=== PATIENT | male | born 1945 | race Two or more races ===

== ENCOUNTER → 2020-05-09 14:13 | Outpatient (BNVA) | payer MEDICARE, MEDICAID, SELFPAY | PROVIDERS: PCP Family Medicine; Visit Provider Surgery | DX: Z86.010 Personal history of colon polyps (principal) | CPT/HCPCS: 99202 ==

== ENCOUNTER 2020-05-24 06:45 | Day surgery (SDC) | payer MEDICARE, MEDICAID, SELFPAY ==
[2020-05-17 13:41] VITALS: BMI 31.9
[2020-05-24 06:54] VITALS: BMI 30.9
[2020-05-24 07:13] VITALS: BP 163/95; PULSE 79; RESP 16; TEMP 36.7; O2SAT 99
[2020-05-24 07:13] LABS: Glucose, Whole Blood 174 mg/dL (60-115)
--- NOTE | 2020-05-24 07:30 | HO.ANESPROP2 ---
[facility] Past Medical History Medical History Anemia BPH (benign prostatic hyperplasia) Diabetes mellitus GERD (gastroesophageal reflux disease) History of adenomatous polyp of colon Hyperlipidemia Hypertension Neuropathy [place] speaking patient Surgical History Surgical History History of circumcision (10/02/16) History of colonoscopy with polypectomy (03/19/14) History of local excision of skin lesion (02/29/16) Hx of transurethral resection of prostate Social History Social History Are you a primary healthcare administration internship to a significant other at home: No Do you presently have visiting nurse or other home services: No Smoking Status: Former smoker Smoking Quit Date: 1979 Use of substances other than those prescribed or required for medical reasons: No Advance Directives: No Advance Directives Information Provided: Yes Recently lost weight without trying: No Meds Allergies Allergy/AdvReac Type Severity Reaction Status Date / Time No Known Allergies Allergy Verified 05/24/20 06:53 Home Medications Medication Instructions Recorded Confirmed Type alcohol swabs pad TOPICAL BID 05/09/20 History aspirin 81 mg tablet,delayed 81 mg PO BEDTIME 05/09/20 05/17/20 History release atorvastatin 10 mg tablet 10 mg PO BEDTIME 05/09/20 05/17/20 History blood sugar diagnostic #10 ea 05/09/20 History cholecalciferol (vitamin D3) 50 50 mcg PO QAM 05/09/20 05/17/20 History mcg (2,000 unit) tablet lisinopril 40 mg tablet 40 mg PO QAM 05/09/20 05/17/20 History metformin 500 mg tablet 1,000 mg PO BID 05/09/20 05/17/20 History omeprazole 20 mg capsule,delayed 20 mg PO QAM 05/09/20 05/17/20 History release pregabalin 50 mg capsule 50 mg PO TID 05/09/20 05/17/20 History Exam Exam Date and Time: May 24, 2020729 Height,Weight and Vital Signs: Height 5 ft 6 in Weight 87.09 kg Last Vital Signs Temp 98.1 F 05/24/20 07:13 Pulse 79 05/24/20 07:13 Resp 16 05/24/20 07:13 BP 163/95 H 05/24/20 07:13 Pulse Ox 99 05/24/20 07:13 Pertinent Lab Results Pertinent Lab Results: Laboratory Tests 05/24/20 07:09 POC Glucose 174 H Airway Mallampati Class: III TM Dist: >3cm Neck ROM: Full Denture: Upper and Lower Heart: rrr Lungs: nl Other: ao Assessment and Plan Assessment Anesthesia Assessment: Anesthesia Plan Discussed and Chart Reviewed Final Anesthetic Review NPO: Yes ASA Class: III Final Preanesthetic Review: No Changes in Pt Med Stat, Meds/Allgs Chart Reviewed, Consent Obtained/Reviewed and Anes Risks/Benef Reviewed Patient Risk: Intermediate Procedure Risk: Low Anesthetic Plan Anesthetic Plan: MAC: Disposition: Standard PACU
[2020-05-24 08:15] VITALS: BP 120/66; PULSE 81; RESP 16; TEMP 37.1; O2SAT 98
--- NOTE | 2020-05-24 08:21 | MHC.SHP ---
Pre-Procedural Eval Section B Chief Complaint: History of Adenomatous Polyp of Colon Allergies: Allergies Allergy/AdvReac Type Severity Reaction Status Date / Time No Known Allergies Allergy Verified 05/24/20 06:53 Plan I have reviewed the history and physical and performed a pertinent physical examination on my patient. No changes have occurred unless specified.
--- NOTE | 2020-05-24 08:21 | PM.OP ---
Brief Operative Note Date of Service: 05/24/20 Pre-op diagnosis: hx of adenoma Post-op diagnosis: other (multiple small polyps - cecum, right colon, hepatic flexure, level 40) Procedure: colonoscopy, polypectomy with forceps x 4 Surgeon: Shailesh Buck MD Anesthesia: MAC Estimated blood loss (mL): 3 Pathology: other (multiple polyps) Condition: stable Disposition: PACU
[2020-05-24 08:30] VITALS: BP 150/90; PULSE 77; RESP 16; TEMP 37.1; O2SAT 98
--- NOTE | 2020-05-24 08:57 | OP_ITS ---
SURGEON: Shailesh Buck MD INDICATIONS: The patient is a 74-year-old male, who had a history of an adenoma seen on a previous colonoscopy in 2014, referred to me for a followup colonoscopy. He understood the technique of procedure. He was aware of the risks, benefits, and alternatives. PREOPERATIVE DIAGNOSIS: History of tubular adenomas. POSTOPERATIVE DIAGNOSIS: PROCEDURE PERFORMED: Colonoscopy, polypectomy using cold forceps x4 for polyps. ESTIMATED BLOOD LOSS: COMPLICATIONS: ANESTHESIA: ASSISTANTS: SPECIMENS: POSTOPERATIVE DIAGNOSES: 1. Small polyp about 2-3 mm in the cecum, removed with multiple bites of the cold forceps. 2. Small polyp in the mid right colon about 2 to 3 mm also removed using multiple bites of cold forceps. 3. Flat polyp about 7 mm near the area of the hepatic flexure, removed using multiple bites of cold forceps. 4. Small polyp about 2 mm at level of 40 cm removed using cold forceps. 5. Occasional diverticula. DESCRIPTION OF PROCEDURE: He was brought to the operating room, placed in left lateral decubitus position under monitored anesthesia care. A full digital rectal was done. There was no palpable mass or induration. The tip of the Olympus colonoscope was gently introduced through the anal orifice, advanced with insufflation all the way to the cecum. The cecum was intubated. The cecum was identified by visualization of the ileocecal valve, as well as the appendiceal orifice. There was note of a small polyp in the cecum, about 2-3 mm in size, removed using multiple bites of cold forceps. I proceeded to continue withdrawing the scope with careful examination of the entire colonic mucosa being done with scope withdrawal. The patient had good bowel prep, so it was unlikely that any lesion may have been missed. There was note of a small polyp about 2-3 mm in the mid right colon removed with multiple bites of cold forceps. At the area of the hepatic flexure was note of a flat polyp about 7 mm in size removed using multiple bites of cold forceps. At level of 40 cm was note of a small polyp about 2 mm in size, removed using multiple bites of cold forceps. There was also note of occasional diverticula in the entire colon. The rectum was reached and there were no lesions seen. The scope was then withdrawn completely. The patient tolerated the procedure well. There were no complications noted. Depending on the path report, I would recommend a followup colonoscopy within 1-2 years in view of the flat polyp seen. MD DIANNA Castañeda/MARCIO / [id number] MTDD
--- NOTE | 2020-05-24 08:58 | HO.POSTANES ---
Post Anesthesia Evaluation Post Anesthesia Evaluation Vital Signs: Vital Signs Temp Pulse Resp BP Pulse Ox 05/24/20 08:30 98.8 F 77 16 150/90 H 98 05/24/20 08:15 98.8 F 81 16 120/66 98 05/24/20 07:13 98.1 F 79 16 163/95 H 99 Anesthesia: General (tiva) Mental Status: Awake Pain Control: Satisfactory Nausea/Vomiting: None Hydration: Adequate Anesthesia-Related Issues: No Anes. Related Issues
--- NOTE | 2020-05-24 12:19 | PC.NURSE ---
[id number] ENCEPHALOGRAPHER USED FOR INSTRUCTIONS
== END 2020-05-24 09:12 | disposition home or self-care (01) ==
PROVIDERS: PCP Family Medicine; Visit Provider Surgery
PROC: 0DJD8ZZ Inspection of Lower Intestinal Tract, Via Natural or Artificial Opening Endoscopic (ICD-10-PCS; CPT 45378; principal; 2020-05-24 07:30)
DX: Z12.11 Encounter for screening for malignant neoplasm of colon (principal); Z86.010 Personal history of colon polyps; D12.0 Benign neoplasm of cecum; D12.2 Benign neoplasm of ascending colon; D12.3 Benign neoplasm of transverse colon; D12.5 Benign neoplasm of sigmoid colon; K57.30 Diverticulosis of large intestine without perforation or abscess without bleeding; I10 Essential (primary) hypertension; E11.9 Type 2 diabetes mellitus without complications; G62.9 Polyneuropathy, unspecified; D64.9 Anemia, unspecified; Z79.84 Long term (current) use of oral hypoglycemic drugs; Z79.899 Other long term (current) drug therapy; Z79.82 Long term (current) use of aspirin
CPT/HCPCS: 45380; 82947; 88305

== ENCOUNTER → 2020-05-30 15:03 | Outpatient (BNVA) | payer MEDICARE, MEDICAID, SELFPAY | PROVIDERS: PCP Family Medicine; Visit Provider Urology | DX: N39.41 Urge incontinence (principal) | CPT/HCPCS: 51798; 81002; 99212 ==

== ENCOUNTER 2021-03-09 08:39 | Outpatient (REF) | payer MEDICARE, MEDICAID, SELFPAY | END 2021-03-09 08:40 | disposition home or self-care (01) | LOC: HO.HOSX 08:39 | PROVIDERS: Visit Provider Orthopaedic Surgery | DX: Z13.89 Encounter for screening for other disorder (principal) ==

== ENCOUNTER 2021-03-10 11:08 | Emergency (ER) | payer MEDICARE, MEDICAID, SELFPAY ==
[2021-03-10 11:20] VITALS: BP 182/97; BP 183/79; PULSE 77; RESP 19; TEMP 36.5; O2SAT 95; BMI 25.1
[2021-03-10 11:21] LABS: Glucose, Whole Blood 404 mg/dL (60-115)
--- NOTE | 2021-03-10 11:30 | ED_ITS ---
HPI - General Adult General Chief complaint: General Medical Stated complaint: hyperglycemia Time Seen by Provider: 03/10/21 11:30 History of Present Illness HPI narrative: Patient from intermediate has a history of diabetes, hypertension. Presented today with having episode of dizziness. Was noted to have a sugar of over 500. Patient is sent in for further evaluation. No fever no chills no cough no congestion no chest pain or shortness of breath. No change in stool. No abdominal pain. Patient from home. There has been no changes in medication is no change in diet. No nausea no vomiting. Related Data Home Medications Medication Instructions Recorded Confirmed alcohol swabs pad TOPICAL BID 05/09/20 05/30/20 aspirin 81 mg tablet,delayed 81 mg PO BEDTIME 05/09/20 05/30/20 release atorvastatin 10 mg tablet 10 mg PO BEDTIME 05/09/20 05/30/20 blood sugar diagnostic #10 ea 05/09/20 05/30/20 cholecalciferol (vitamin D3) 50 50 mcg PO QAM 05/09/20 05/30/20 mcg (2,000 unit) tablet lisinopril 40 mg tablet 40 mg PO QAM 05/09/20 05/30/20 metformin 500 mg tablet 1,000 mg PO BID 05/09/20 05/30/20 omeprazole 20 mg capsule,delayed 20 mg PO QAM 05/09/20 05/30/20 release pregabalin 50 mg capsule 50 mg PO TID 05/09/20 05/30/20 duloxetine 60 mg capsule,delayed 60 mg PO DAILY 05/30/20 05/30/20 release Previous Rx's Medication Instructions Recorded sodium,potassium,mag sulfates 17.5 See Rx Instructions PO .COMPLEX 05/23/20 gram-3.13 gram-1.6 gram oral soln #354 ml (Suprep Bowel Prep Kit) Allergies Allergy/AdvReac Type Severity Reaction Status Date / Time No Known Allergies Allergy Verified 05/30/20 15:23 Review of Systems Review of Systems: No cough no congestion or upper respiratory symptoms No diaphoresis All systems reviewed otherwise negative PMFSH Past Medical History Attestation statement: The following information was validated with the patient. Medical History Anemia BPH (benign prostatic hyperplasia) Diabetes mellitus GERD (gastroesophageal reflux disease) History of adenomatous polyp of colon Hyperlipidemia Hypertension Neuropathy [place] speaking patient Urge incontinence Urgency of micturition Surgical History History of circumcision (10/02/16) History of colonoscopy with polypectomy (03/19/14) History of local excision of skin lesion (02/29/16) Hx of transurethral resection of prostate Family History Family History Other Lung disease Social History Social History Are you a primary after school caregiver to a significant other at home: No Do you presently have visiting nurse or other home services: No Alcohol intake: never Patient Tobacco Use Status: Never used Tobacco Use of substances other than those prescribed or required for medical reasons: No Advance Directives: No Advance Directives Information Provided: Yes Physical Exam Vital Signs: Vital Signs: Last Vital Signs Temp 97.7 F 03/10/21 11:20 Pulse 76 03/10/21 11:42 Resp 19 03/10/21 11:20 BP 162/80 H 03/10/21 11:42 Pulse Ox 95 03/10/21 11:20 Body Mass Index 25.1 Appearance: Alert. Oriented X3. No acute distress. Eyes: Pupils equal, round and reactive to light. ENT: Pharynx normal. Neck: Normal inspection. Neck supple. No lymph nodes noted. No crepitus CVS: Normal heart rate and rhythm. Pulses normal. Normal S1 and S2 Respiratory: No respiratory distress. Breath sounds normal. No Wheezing. No rales Abdomen: Soft and nontender. No rigidity. No distention. good BS x4 Skin: Skin warm and dry. Normal skin color. Normal skin turgor. Extremities: No lower extremity edema. Neurovascular intact to all extremities. No Lacerations. No Rash Neuro: Oriented X 3. No motor deficit. No sensory deficit. Moving all extermities. No slurred speech Medical Decision Making MDM Narrative Medical decision making narrative: Patient given IV fluid monitor emergency department. The initial glucose was elevated. After IV fluids is down to 250. Will discharge patient home. Hemoglobin is 11.6. Patient's EKG showed sinus pattern heart rate is 70 VA QRS QT within normal limits this slight flattening in the T-waves in the lateral leads. Flattening of the T-waves over the inferior leads. Patient's troponin was negative. LFTs are normal. Currently asymptomatic. Will discharge patient home. In stable condition. Will ask patient to follow a strict diabetic diet. Continue taking his medication. Lab Data Result diagrams: 03/10/21 12:11 03/10/21 12:11 Labs: Lab Results 03/10/21 03/10/21 03/10/21 Range/Units 11:17 12:11 12:11 WBC 5.3 (4.8-10.8) X10*3/uL RBC 3.90 L (4.60-5.80) X10*6/uL Hgb 11.6 L (14.0-18.0) g/dl Hct 34.1 L (42-52) % MCV 87.4 (80-98) fL MCH 29.7 (27.0-33.0) pg MCHC 34.0 (31.0-36.0) g/dl RDW 12.8 (11.0-16.0) % Plt Count 171 (160-400) X10*3/uL MPV 10.9 (9.4-12.4) fL Immature Gran % (Auto) 0.4 (0.0-0.4) % Neut % (Auto) 67.1 (45-73) % Lymph % (Auto) 23.8 (20-40) % [place] % (Auto) 6.8 (2-11) % Eos % (Auto) 1.3 (0-4) % Baso % (Auto) 0.6 (0-2) % Lymph # (Auto) 1.3 (1.2-4.9) X10*3/uL [place] # (Auto) 0.4 (0.1-1.2) X10*3/uL Eos # (Auto) 0.1 (0.0-0.4) X10*3/uL Baso # (Auto) 0.0 (0.0-0.2) X10*3/uL Abs Immat Gran (auto) 0.02 (0.00-0.03) X10*3/uL Absolute Neuts (auto) 3.6 (2.0-8.3) X10*3/uL Absolute Nucleated RBC 0.000 (0.0-0.012) X10*3/uL Nucleated RBC % (auto) 0.0 (0.0-0.2) /100WBC Sodium 138 (135-145) mmol/L Potassium 4.6 (3.3-5.1) mmol/L Chloride 101 (96-108) mmol/L Carbon Dioxide 27 (22-29) mmol/L Anion Gap 15 (12-20) BUN 19 H (9-16) mg/dL Creatinine 1.54 H (0.5-1.4) mg/dL Estim Creat Clear Calc 41.4 Estimated GFR 44 POC Glucose 404 H* (60-115) mg/dL Random Glucose 418 H* (60-115) mg/dL Calcium 9.9 (8.4-10.2) mg/dL Magnesium 1.6 (1.6-2.6) mg/dL Total Bilirubin 0.4 (0.0-1.0) mg/dL Direct Bilirubin 0.2 (0.0-0.5) mg/dL AST 21 (5-37) U/L ALT 29 (0-40) U/L Alkaline Phosphatase 95 (39-117) U/L Troponin I High Sens (<3.5-35.0) ng/L Total Protein 7.0 (6.5-8.0) g/dL Albumin 4.3 (3.5-5.0) g/dL 03/10/21 Range/Units 12:11 WBC (4.8-10.8) X10*3/uL RBC (4.60-5.80) X10*6/uL Hgb (14.0-18.0) g/dl Hct (42-52) % MCV (80-98) fL MCH (27.0-33.0) pg MCHC (31.0-36.0) g/dl RDW (11.0-16.0) % Plt Count (160-400) X10*3/uL MPV (9.4-12.4) fL Immature Gran % (Auto) (0.0-0.4) % Neut % (Auto) (45-73) % Lymph % (Auto) (20-40) % [place] % (Auto) (2-11) % Eos % (Auto) (0-4) % Baso % (Auto) (0-2) % Lymph # (Auto) (1.2-4.9) X10*3/uL [place] # (Auto) (0.1-1.2) X10*3/uL Eos # (Auto) (0.0-0.4) X10*3/uL Baso # (Auto) (0.0-0.2) X10*3/uL Abs Immat Gran (auto) (0.00-0.03) X10*3/uL Absolute Neuts (auto) (2.0-8.3) X10*3/uL Absolute Nucleated RBC (0.0-0.012) X10*3/uL Nucleated RBC % (auto) (0.0-0.2) /100WBC Sodium (135-145) mmol/L Potassium (3.3-5.1) mmol/L Chloride (96-108) mmol/L Carbon Dioxide (22-29) mmol/L Anion Gap (12-20) BUN (9-16) mg/dL Creatinine (0.5-1.4) mg/dL Estim Creat Clear Calc Estimated GFR POC Glucose (60-115) mg/dL Random Glucose (60-115) mg/dL Calcium (8.4-10.2) mg/dL Magnesium (1.6-2.6) mg/dL Total Bilirubin (0.0-1.0) mg/dL Direct Bilirubin (0.0-0.5) mg/dL AST (5-37) U/L ALT (0-40) U/L Alkaline Phosphatase (39-117) U/L Troponin I High Sens < 3.5 (<3.5-35.0) ng/L Total Protein (6.5-8.0) g/dL Albumin (3.5-5.0) g/dL Discharge Plan Discharge Clinical Impression: Diabetes mellitus Patient Disposition: Home, Self-Care Prescriptions: No Action Suprep Bowel Prep Kit 17.5-3.13-1.6 gram recon soln See Rx Instructions PO .COMPLEX Qty: 354 RF: 0 duloxetine 60 mg capsule,delayed release(DR/EC) 60 mg PO DAILY RF: 0 metformin 500 mg tablet 1,000 mg PO BID RF: 0 atorvastatin 10 mg tablet 10 mg PO BEDTIME RF: 0 lisinopril 40 mg tablet 40 mg PO QAM RF: 0 (DME) FreeStyle Lite Strips Strip See Rx Instructions ea Not Applicable BID Qty: 10 RF: 0 cholecalciferol (vitamin D3) 50 mcg (2,000 unit) tablet 50 mcg PO QAM RF: 0 pregabalin 50 mg capsule 50 mg PO TID RF: 0 alcohol swabs Pads, Medicated topical BID RF: 0 omeprazole 20 mg capsule,delayed release(DR/EC) 20 mg PO QAM RF: 0 aspirin 81 mg tablet,delayed release (DR/EC) 81 mg PO BEDTIME RF: 0 Referrals: Physician,Unknown J [Primary Care Provider] - 2 days
--- NOTE | 2021-03-10 11:30 | ECG_ITS ---
Test Reason : GEN MED Blood Pressure : / mmHG Vent. Rate : 070 BPM Atrial Rate : 070 BPM P-R Int : 154 ms QRS Dur : 084 ms QT Int : 364 ms P-R-T Axes : 025 024 033 degrees QTc Int : 393 ms Normal sinus rhythm with sinus arrhythmia Nonspecific T wave abnormality Abnormal ECG When compared with ECG of 28-AUG-2012 09:18, Nonspecific T wave abnormality has replaced inverted T waves in Inferior leads Referred By: Tess Nassar Electronically Signed By:PRADEEP APODACA MD
[2021-03-10 11:37] VITALS: BP 170/85; PULSE 71
[2021-03-10 11:40] VITALS: BP 179/86; PULSE 75
[2021-03-10 11:42] VITALS: BP 162/80; PULSE 76
[2021-03-10 12:15] LABS: MANUAL DIFF FLAG NO
[2021-03-10 12:19] LABS: Basophils Percent Auto 0.6 % (0-2); Eosinophils Absolute Auto 0.1 X10*3/uL (0.0-0.4); Eosinophils Percent Auto 1.3 % (0-4); Hematocrit 34.1 % (42-52); Hemoglobin 11.6 g/dl (14.0-18.0); Imm Gran Abs Auto 0.02 X10*3/uL (0.00-0.03); Imm Gran Pct Auto 0.4 % (0.0-0.4); Lymphocytes Absolute Auto 1.3 X10*3/uL (1.2-4.9); Lymphocytes Percent Auto 23.8 % (20-40); Mean Corpuscular Hemoglobin 29.7 pg (27.0-33.0); Mean Corpuscular Volume 87.4 fL (80-98); Mean Platelet Volume 10.9 fL (9.4-12.4); Monocytes Absolute Auto 0.4 X10*3/uL (0.1-1.2); Monocytes Percent Auto 6.8 % (2-11); Neutrophils Absolute Auto 3.6 X10*3/uL (2.0-8.3); Neutrophils Percent Auto 67.1 % (45-73); Platelet Count 171 X10*3/uL (160-400); Red Cell Distribution Width 12.8 % (11.0-16.0); White Blood Count 5.3 X10*3/uL (4.8-10.8)
[2021-03-10 12:41] LABS: Alanine Aminotransferase 29 U/L (0-40); Albumin Level 4.3 g/dL (3.5-5.0); Alkaline Phosphatase 95 U/L (39-117); Anion Gap 15 (12-20); Aspartate Amino Transferase 21 U/L (5-37); Bilirubin Direct 0.2 mg/dL (0.0-0.5); Bilirubin Total 0.4 mg/dL (0.0-1.0); Blood Urea Nitrogen 19 mg/dL (9-16); Calcium 9.9 mg/dL (8.4-10.2); Carbon Dioxide 27 mmol/L (22-29); Chloride 101 mmol/L (96-108); Creatinine Clr Calc Pharmacy 41.4; Estimated Glomerular Filt Rate 44; Glucose Random 418 mg/dL (60-115); Magnesium 1.6 mg/dL (1.6-2.6); Potassium 4.6 mmol/L (3.3-5.1); Sodium 138 mmol/L (135-145)
[2021-03-10 12:42] LABS: Troponin-I High Sensitivity < 3.5 ng/L (<3.5-35.0)
[2021-03-10] MEDS: 0.9 % Sodium Chloride 1,000 ML 999 ML IV (13:23)
[2021-03-10 14:31] LABS: Glucose, Whole Blood 241 mg/dL (60-115)
== END 2021-03-10 14:58 | disposition home or self-care (01) ==
PROVIDERS: Emergency Medicine; Emergency Provider Emergency Medicine Emergency Medical Services
DX: E11.65 Type 2 diabetes mellitus with hyperglycemia (principal); I10 Essential (primary) hypertension; Z79.82 Long term (current) use of aspirin; Z79.84 Long term (current) use of oral hypoglycemic drugs
CPT/HCPCS: 36415; 80048; 80076; 82947; 83735; 84484; 85025; 93005; 96360; 99284; 99285

== ENCOUNTER 2021-03-20 15:24 | Outpatient (REF) | payer MEDICARE, MEDICAID, SELFPAY ==
[2021-03-20 16:18] LABS: Estimated Average Glucose 280 mg/dL; Hemoglobin A1c % 11.4 %
[2021-03-20 16:38] LABS: Anion Gap 14 (12-20); Blood Urea Nitrogen 23 mg/dL (9-16); Calcium 10.7 mg/dL (8.4-10.2); Carbon Dioxide 25 mmol/L (22-29); Chloride 103 mmol/L (96-108); Estimated Glomerular Filt Rate 49; Glucose Random 154 mg/dL (60-115); Potassium 5.2 mmol/L (3.3-5.1); Sodium 137 mmol/L (135-145)
[2021-03-20 16:48] LABS: T4 Thyroxine 7.3 ug/dL (4.5-12.0); Thyroid Stimulating Hormone 0.88 uIU/mL (0.32-4.0)
[2021-03-20 17:00] LABS: Folate 13.4 ng/mL (> or = 4.0); Vitamin B12 357 pg/mL (200-900)
== END 2021-03-20 15:25 | disposition home or self-care (01) ==
LOC: HO.LAB 15:24
PROVIDERS: PCP Family Medicine; Visit Provider Psychiatry & Neurology Neurology
DX: G31.84 Mild cognitive impairment of uncertain or unknown etiology (principal)
CPT/HCPCS: 36415; 80048; 82607; 82746; 83036; 84436; 84443

== ENCOUNTER 2021-04-17 09:17 | Outpatient (REF) | payer MEDICARE, MEDICAID, SELFPAY ==
--- NOTE | ~2021-04-17 | CT_ITS ---
EXAMINATION: CT HEAD WITHOUT CONTRAST CLINICAL INFORMATION: Mild cardiomegaly with impairment. COMPARISON: CT brain 08/07/2018. TECHNIQUE: Contiguous axial imaging was performed from the skull base to vertex without intravenous administration of contrast. This CT examination was performed using dose optimization techniques as appropriate, variously including the following: *Automated exposure control *Adjustment of mA and/or kV according to patient size (this includes techniques or standardized protocols for targeted exams where dose is matched to indication/reason for exam; i.e. extremities or head) *Use of iterative reconstruction technique DLP: 934 mGy-cm. FINDINGS: There is no acute intra-axial or extra-axial bleed, masses or midline shift. There is lacunar infarction left body of the external capsule. There is diffuse periventrical hypodensities in both cerebral hemispheres without mass effect. There is no acute infarction evolution. The lateral ventricles are symmetrical but moderately enlarged. There is mild anterior falx calcification. The osseous structures and soft tissues are normal. The mastoid air cells and visualized portions of the paranasal sinuses are well aerated. CT/CT head/brain wo con IMPRESSION: No acute intracranial process seen. Small lacunar infarction left external capsule, stable. Extensive periventricular white matter changes likely chronic microvascular ischemic changes, stable.
== END 2021-04-17 09:18 | disposition home or self-care (01) ==
LOC: HO.CT 09:17
PROVIDERS: Visit Provider Psychiatry & Neurology Neurology
DX: G31.84 Mild cognitive impairment of uncertain or unknown etiology (principal)
CPT/HCPCS: 70450

== ENCOUNTER → 2021-07-18 13:21 | Outpatient (BNVA) | payer MEDICARE, MEDICAID, SELFPAY | PROVIDERS: PCP Family Medicine; Visit Provider Urology | DX: N40.0 Benign prostatic hyperplasia without lower urinary tract symptoms (principal); N39.41 Urge incontinence; E08.40 Diabetes mellitus due to underlying condition with diabetic neuropathy, unspecified | CPT/HCPCS: 51798; 99212 ==

== ENCOUNTER → 2021-09-05 08:51 | Outpatient (BNVA) | payer MEDICARE, MEDICAID, SELFPAY | PROVIDERS: PCP Family Medicine; Visit Provider Urology | DX: N40.0 Benign prostatic hyperplasia without lower urinary tract symptoms (principal); E08.40 Diabetes mellitus due to underlying condition with diabetic neuropathy, unspecified; R39.15 Urgency of urination; R35.0 Frequency of micturition; R35.1 Nocturia | CPT/HCPCS: 52000; 99212 ==

== ENCOUNTER → 2021-10-13 09:20 | Outpatient (BNVA) | payer MEDICARE, MEDICAID, SELFPAY | PROVIDERS: PCP Family Medicine; Visit Provider Urology | DX: Z13.89 Encounter for screening for other disorder (principal) | CPT/HCPCS: Q3014 ==

== ENCOUNTER → 2021-10-19 11:03 | Outpatient (BNVA) | payer MEDICARE, MEDICAID, SELFPAY | PROVIDERS: PCP Family Medicine; Visit Provider Urology | DX: R33.9 Retention of urine, unspecified (principal); E08.40 Diabetes mellitus due to underlying condition with diabetic neuropathy, unspecified | CPT/HCPCS: Q3014 ==

== ENCOUNTER 2021-10-23 06:13 | Day surgery (SDC) | payer MEDICARE, MEDICAID, SELFPAY ==
[2021-10-17 15:14] VITALS: BMI 30.9
--- NOTE | 2021-10-20 11:58 | P.CONAN_ITS ---
Documented by User: Sallie Pineda NP 10/20/21 12:01 HPI - Anesthesia Eval Consult details Narrative: 76yo M for Laser Ablation Prostate w/Green Light PMFSH Active Problems Active Problems: All Active Problems (Updated 10/19/21 @ 15:33 by Kannan Li MD) Urinary retention with incomplete bladder emptying (Acute) Diabetic neuropathy associated with diabetes mellitus due to underlying condition (Acute) Urinary frequency (Acute) Nocturia more than twice per night (Acute) Urgency of micturition (Acute) Urge incontinence (Acute) History of adenomatous polyp of colon (Acute) Anemia (Acute) BPH (benign prostatic hyperplasia) (Acute) Hyperlipidemia (Acute) Neuropathy (Acute) Diabetes mellitus (Acute) Hypertension (Acute) Past Medical History Medical History Anemia BPH (benign prostatic hyperplasia) Diabetes mellitus GERD (gastroesophageal reflux disease) History of adenomatous polyp of colon Hyperlipidemia Hypertension Neuropathy Japanese speaking patient Urge incontinence Urgency of micturition Family History Family History Other Lung disease Surgical History Surgical History History of circumcision (10/02/16) History of colonoscopy with polypectomy (03/19/14) History of local excision of skin lesion (02/29/16) Hx of transurethral resection of prostate Social History Social History Are you a primary resident care supervisor to a significant other at home: No Do you presently have visiting nurse or other home services: No Alcohol intake: never Patient Tobacco Use Status: Former Tobacco user Quit Date: 34 years ago Tobacco use type: Cigarette Use of substances other than those prescribed or required for medical reasons: No Are you DNR?: No Advance Directives: No Advance Directives Information Provided: Yes Meds Allergies Allergy/AdvReac Type Severity Reaction Status Date / Time No Known Allergies Allergy Verified 10/19/21 11:04 Home Medications Medication Instructions Recorded Confirmed Last Taken Type alcohol swabs pad TOPICAL BID 05/09/20 05/30/20 Unknown History aspirin 81 mg tablet,delayed 81 mg PO BEDTIME 05/09/20 10/17/21 Unknown History release atorvastatin 10 mg tablet 10 mg PO BEDTIME 05/09/20 10/17/21 Unknown History blood sugar diagnostic #10 ea 05/09/20 05/30/20 Unknown History lisinopril 40 mg tablet 40 mg PO QAM 05/09/20 10/17/21 Unknown History metformin 500 mg tablet 1,000 mg PO BID 05/09/20 10/17/21 Unknown History omeprazole 20 mg capsule,delayed 20 mg PO QAM 05/09/20 10/23/21 10/23/21 History release pregabalin 50 mg capsule 50 mg PO TID 05/09/20 10/23/21 10/23/21 History duloxetine 60 mg capsule,delayed 60 mg PO DAILY 05/30/20 10/23/21 10/23/21 History release donepezil 10 mg tablet 10 mg PO DAILY 07/18/21 10/17/21 Unknown History glipizide 5 mg tablet 5 mg PO DAILY 07/18/21 10/17/21 Unknown History insulin detemir U-100 100 unit/mL 4 unit SUBCUT DAILY 07/18/21 10/17/21 Unknown History (3 mL) subcutaneous pen (Levemir FlexTouch U-100 Insulin) lancets 33 gauge (TRUEplus Lancets) #100 ea 07/18/21 Unknown History pen needle, diabetic 31 gauge x #50 ea 07/18/21 Unknown History 3/16 (Easy Touch) pen needle, diabetic 32 gauge x #50 ea 07/18/21 Unknown History (Pentips) risperidone 1 mg tablet 1 mg PO BEDTIME 07/18/21 10/17/21 Unknown History cholecalciferol (vitamin D3) 50 50 mcg PO QAM 10/13/21 10/17/21 Unknown History mcg (2,000 unit) capsule quetiapine 25 mg tablet 25 mg PO BEDTIME 10/13/21 10/17/21 Unknown History Exam Exam Date and Time: October 20, 2021 1158 Height,Weight and Vital Signs: Height 5 ft 6 in Weight 87.09 kg Pertinent Lab Results Pertinent Lab Results: Laboratory Tests 03/10/21 03/20/21 12:11 15:43 WBC 5.3 Hgb 11.6 L Hct 34.1 L Plt Count 171 Sodium 137 Potassium 5.2 H Chloride 103 Carbon Dioxide 25 BUN 23 H Creatinine 1.42 H Narrative Narrative: EKG 03/2021 Vent. Rate : 070 BPM ? ? Atrial Rate : 070 BPM ?? P-R Int : 154 ms? QRS Dur : 084 ms ? ? QT Int : 364 ms ? ? ? P-R-T Axes : 025 024 033 degrees ?? QTc Int : 393 ms ? Normal sinus rhythm with sinus arrhythmia Nonspecific T wave abnormality Abnormal ECG When compared with ECG of 28-AUG-2012 09:18, Nonspecific T wave abnormality has replaced inverted T waves in Inferior leads Assessment and Plan Assessment Anesthesia Assessment: Chart Reviewed Documented by User: Erika Poole MD 10/23/21 08:29 PMF Past Medical History Medical History Anemia BPH (benign prostatic hyperplasia) Diabetes mellitus GERD (gastroesophageal reflux disease) History of adenomatous polyp of colon Hyperlipidemia Hypertension Neuropathy Japanese speaking patient Urge incontinence Urgency of micturition Family History Family History Other Lung disease Surgical History Surgical History History of circumcision (10/02/16) History of colonoscopy with polypectomy (03/19/14) History of local excision of skin lesion (02/29/16) Hx of transurethral resection of prostate History of Problems with Anesthesia: No Social History Social History Are you a primary resident care supervisor to a significant other at home: No Do you presently have visiting nurse or other home services: No Alcohol intake: never Patient Tobacco Use Status: Former Tobacco user Quit Date: 34 years ago Tobacco use type: Cigarette Use of substances other than those prescribed or required for medical reasons: No Are you DNR?: No Advance Directives: No Advance Directives Information Provided: Yes Meds Allergies Allergy/AdvReac Type Severity Reaction Status Date / Time No Known Allergies Allergy Verified 10/19/21 11:04 Home Medications Medication Instructions Recorded Confirmed Last Taken Type alcohol swabs pad TOPICAL BID 12/07/20 12/28/20 Unknown History aspirin 81 mg tablet,delayed 81 mg PO BEDTIME 05/09/20 10/17/21 Unknown History release atorvastatin 10 mg tablet 10 mg PO BEDTIME 05/09/20 10/17/21 Unknown History blood sugar diagnostic #10 ea 05/09/20 05/30/20 Unknown History lisinopril 40 mg tablet 40 mg PO QAM 05/09/20 10/17/21 Unknown History metformin 500 mg tablet 1,000 mg PO BID 05/09/20 10/17/21 Unknown History omeprazole 20 mg capsule,delayed 20 mg PO QAM 05/09/20 10/23/21 10/23/21 History release pregabalin 50 mg capsule 50 mg PO TID 05/09/20 10/23/21 10/23/21 History duloxetine 60 mg capsule,delayed 60 mg PO DAILY 05/30/20 10/23/21 10/23/21 History release donepezil 10 mg tablet 10 mg PO DAILY 07/18/21 10/17/21 Unknown History glipizide 5 mg tablet 5 mg PO DAILY 07/18/21 10/17/21 Unknown History insulin detemir U-100 100 unit/mL 4 unit SUBCUT DAILY 07/18/21 10/17/21 Unknown History (3 mL) subcutaneous pen (Levemir FlexTouch U-100 Insulin) lancets 33 gauge (TRUEplus Lancets) #100 ea 07/18/21 Unknown History pen needle, diabetic 31 gauge x #50 ea 07/18/21 Unknown History 3/16 (Easy Touch) pen needle, diabetic 32 gauge x #50 ea 07/18/21 Unknown History (Pentips) risperidone 1 mg tablet 1 mg PO BEDTIME 07/18/21 10/17/21 Unknown History cholecalciferol (vitamin D3) 50 50 mcg PO QAM 10/13/21 10/17/21 Unknown History mcg (2,000 unit) capsule quetiapine 25 mg tablet 25 mg PO BEDTIME 10/13/21 10/17/21 Unknown History Exam Airway Mallampati Class: III TM Dist: >3cm Neck ROM: Limited Partial: Lower Loose/Missing/Broken Teeth: Yes and Lower Heart: RRR Lungs: CTA Assessment and Plan Assessment Anesthesia Assessment: Anesthesia Plan Discussed Final Anesthetic Review History of Problems with Anesthesia: No NPO: Yes ASA Class: III Final Preanesthetic Review: Meds/Allgs Chart Reviewed, Consent Obtained/Reviewed and Anes Risks/Benef Reviewed Patient Risk: Intermediate Procedure Risk: Low Anesthetic Plan Anesthetic Plan: GA Disposition: Standard PACU
[2021-10-23] VITALS (7 sets, daily range): BP systolic 141–168; BP diastolic 70–83; PULSE 62–76; RESP 16–20; TEMP 36.4–36.6; O2SAT 96–98; BMI 32.5
--- NOTE | 2021-10-23 | ECG_ITS ---
Test Reason : post op ?rhythm Blood Pressure : / mmHG Vent. Rate : 062 BPM Atrial Rate : 062 BPM P-R Int : 162 ms QRS Dur : 076 ms QT Int : 402 ms P-R-T Axes : 037 022 009 degrees QTc Int : 408 ms Sinus rhythm with marked sinus arrhythmia Otherwise normal ECG When compared with ECG of 10-MAR-2021 11:47, No significant change was found Referred By: Erika Poole Electronically Signed By:Bull Navarro
[2021-10-23] MEDS: Lactated Ringers 1,000 ML 100 ML IVCONT (07:06)
[2021-10-23 07:09] LABS: Glucose, Whole Blood 152 mg/dL (60-115)
--- NOTE | 2021-10-23 07:41 | MHC.SHP ---
Pre-Procedural Eval Section A Date of Service: 10/23/21 The patient is an INPATIENT: No Changes since office visit: No Cold of Flu in the past 2 weeks, No New Medical Problems, No Changes in Medication and No Patient answered all questions The History & Physical has been completed within 30 days and I have reviewed it.: Yes Section B Chief Complaint: BPH Allergies: Allergies Allergy/AdvReac Type Severity Reaction Status Date / Time No Known Allergies Allergy Verified 10/19/21 11:04 Review of Systems Sugical H&P ROS: Negative: Constitution, Cardiovascular, Respiratory, Neurological, Psychiatric, Hem-Onc, Allergic/Immunologic, Gastrointestinal, Genitourinary, Musculoskeletal, Integumentary, Endocrine and Eyes/Ears/Nose/Throat Exam Surgical H&P Exam: Normal: HEENT, Normal: Heart, Normal: Lungs, Normal: Extremities, Normal: Abdomen, Normal: Skin and Normal: Neurological Plan Diagnosis/Plan: Unchanged (laser prostate) I have reviewed the history and physical and performed a pertinent physical examination on my patient. No changes have occurred unless specified.
--- NOTE | 2021-10-23 08:21 | PC.NURSE ---
poc blood sugar 67 @ 0815, asymptomatic, notified anesthesia dr. hwang, d5ns ivpb up at 0820 s/p iv insertion. 0822 asymptomatic.
--- NOTE | 2021-10-23 08:31 | P.OP_ITS ---
Operative Note Operative Note Date of Service: 10/23/21 Narrative: PreOperative Diagnosis: Bladder outlet obstruction Post Operative Diagnosis: Bladder outlet obstruction Procedure: GreenLight Laser Enucleation of the prostate Surgeon: Dr Kannan Li Anesthesia: General Indications for procedure: regrowth lateral; History of bladder outlet obstruction. Treated with alpha-dottie and other medications. Still with symptoms. On cystoscopy in office has recurrent tissue.. Recommendation for prostate procedure with laser enucleation of prostate. It has been discussed. Focus was placed on development of retrograde examination which is a normal part of this procedure. Procedure: After informed consent was verified the patient was brought to the operating room and placed in a supine position. Anesthesia was administered per protocol. Patient was placed in modified dorsal lithotomy position and prepped and draped in a sterile fashion. Safety pause time-out was confirmed. Antibiotics have been given. Twenty-four Lithuanian laser cystoscope was inserted per urethra. No abnormalities found the anterior posterior urethra. The bladder was filled on both ureteric orifices were seen in normal position away from our area of interest. We started with the patient's left lateral lobe. Firstly the 05:00 o'clock groove was further developed. This was moved in the lateral position to undermine the tissue on the lateral side. Focus was then placed on the laser at the 1 o'clock position in developing a secondary groove down to the level of bladder fibers. The intervening tissue between these 2 grooves was removed with a combination of enucleation ablation working from the apex toward the bladder neck. A similar procedure was repeated on the patient's right-hand side. When this was completed debris and pieces of prostate removed from the bladder. Both ureteric orifices were reviewed again in shown to be patent in away from any areas of energy damage. The apical area was reviewed in any stray ooze was controlled. A 22 Lithuanian 30 cc balloon Kelly catheter was placed over stylet into the bladder. Clear efflux was obtained. 30 cc was placed in the balloon and gentle traction was placed. A snap was used to hold tension once the patient will be moved and transported. Once transportation its finish this novel be removed. A belladonna and opiate suppository was placed for postprocedure pain management. He tolerated procedure well was extubated in the operating and transferred in a stable condition to the recovery area. Total Power 101 kJ - 13.45 lase time Pathology: Prostate tissue Drains: Kelly catheter
== END 2021-10-23 10:27 | disposition home or self-care (01) ==
PROVIDERS: PCP Family Medicine; Visit Provider Urology
PROC: (CPT 52648; principal; 2021-10-23 07:30)
DX: N40.0 Benign prostatic hyperplasia without lower urinary tract symptoms (principal); N32.0 Bladder-neck obstruction; N39.41 Urge incontinence; R33.9 Retention of urine, unspecified; D64.9 Anemia, unspecified; I10 Essential (primary) hypertension; E78.5 Hyperlipidemia, unspecified; G62.9 Polyneuropathy, unspecified; E11.40 Type 2 diabetes mellitus with diabetic neuropathy, unspecified; Z79.4 Long term (current) use of insulin; Z79.899 Other long term (current) drug therapy; Z87.891 Personal history of nicotine dependence
CPT/HCPCS: 52648; 82947; 93005; J1956; J3010

== ENCOUNTER → 2021-10-26 10:09 | Outpatient (BNVA) | payer MEDICARE, MEDICAID, SELFPAY | PROVIDERS: PCP Family Medicine; Visit Provider Urology | DX: N40.0 Benign prostatic hyperplasia without lower urinary tract symptoms (principal) | CPT/HCPCS: 51700; 51798 ==

== ENCOUNTER → 2021-12-05 10:56 | Outpatient (BNVA) | payer MEDICARE, MEDICAID, SELFPAY | PROVIDERS: PCP Family Medicine; Visit Provider Urology | DX: N40.1 Benign prostatic hyperplasia with lower urinary tract symptoms (principal); R33.8 Other retention of urine; R35.1 Nocturia; E08.40 Diabetes mellitus due to underlying condition with diabetic neuropathy, unspecified | CPT/HCPCS: 51798; 99212 ==

== ENCOUNTER → 2022-01-08 14:01 | Outpatient (BNVA) | payer MEDICARE, MEDICAID, SELFPAY | PROVIDERS: PCP Family Medicine; Referring Provider Family Medicine; Visit Provider Surgery | DX: Z86.010 Personal history of colon polyps (principal) | CPT/HCPCS: 99212 ==

== ENCOUNTER 2022-02-09 06:37 | Day surgery (SDC) | payer MEDICARE, MEDICAID, SELFPAY ==
[2022-02-06 09:30] VITALS: BMI 31.1
--- NOTE | 2022-02-08 10:53 | P.CONAN_ITS ---
Documented by User: Sallie Pineda NP 02/08/22 10:58 HPI - Anesthesia Eval Consult details Narrative: 76yo M for Colonoscopy possible polypectomy s/p prostate laser ablation 10/2021 with [facility] Active Problems Active Problems: All Active Problems (Updated 10/19/21 @ 15:33 by Kannan Li MD) Urinary retention with incomplete bladder emptying (Acute) Diabetic neuropathy associated with diabetes mellitus due to underlying condition (Acute) Urinary frequency (Acute) Nocturia more than twice per night (Acute) Urgency of micturition (Acute) Urge incontinence (Acute) History of adenomatous polyp of colon (Acute) Anemia (Acute) BPH (benign prostatic hyperplasia) (Acute) Hyperlipidemia (Acute) Neuropathy (Acute) Diabetes mellitus (Acute) Hypertension (Acute) Past Medical History Medical History Anemia BPH (benign prostatic hyperplasia) Diabetes mellitus GERD (gastroesophageal reflux disease) History of adenomatous polyp of colon Hyperlipidemia Hypertension Neuropathy Bulgarian speaking patient Urge incontinence Urgency of micturition Family History Family History Other Lung disease Surgical History Surgical History History of circumcision (10/02/16) History of colonoscopy with polypectomy (03/19/14) History of local excision of skin lesion (02/29/16) Hx of transurethral resection of prostate History of Problems with Anesthesia: No Social History Social History Are you a primary career and technology education teacher to a significant other at home: No Do you presently have visiting nurse or other home services: No Alcohol intake: never Patient Tobacco Use Status: Former Tobacco user Quit Date: 34 years ago Tobacco use type: Cigarette Use of substances other than those prescribed or required for medical reasons: No Are you DNR?: No Advance Directives: No Advance Directives Information Provided: Yes Meds Allergies Allergy/AdvReac Type Severity Reaction Status Date / Time No Known Allergies Allergy Verified 01/08/22 14:19 Home Medications Medication Instructions Recorded Confirmed Last Taken Type alcohol swabs pad topical BID 05/09/20 01/08/22 Unknown History aspirin 81 mg tablet,delayed 81 mg PO BEDTIME 05/09/20 01/08/22 Unknown History release atorvastatin 10 mg tablet 10 mg PO BEDTIME 05/09/20 01/08/22 Unknown History blood sugar diagnostic #10 ea 05/09/20 01/08/22 Unknown History lisinopril 40 mg tablet 40 mg PO QAM 05/09/20 01/08/22 Unknown History metformin 500 mg tablet 1,000 mg PO BID 05/09/20 01/08/22 Unknown History omeprazole 20 mg capsule,delayed 20 mg PO QAM 05/09/20 01/08/22 10/23/21 History release pregabalin 50 mg capsule 50 mg PO TID 05/09/20 01/08/22 10/23/21 History duloxetine 60 mg capsule,delayed 60 mg PO DAILY 05/30/20 01/08/22 10/23/21 History release donepezil 10 mg tablet 10 mg PO DAILY 07/18/21 01/08/22 Unknown History glipizide 5 mg tablet 5 mg PO DAILY 07/18/21 01/08/22 Unknown History insulin detemir U-100 100 unit/mL 4 unit subcut DAILY 07/18/21 01/08/22 Unknown History (3 mL) subcutaneous pen (Levemir FlexTouch U-100 Insulin) lancets 33 gauge (TRUEplus Lancets) #100 ea 07/18/21 01/08/22 Unknown History pen needle, diabetic 31 gauge x #50 ea 07/18/21 01/08/22 Unknown History 3/16 (Easy Touch) pen needle, diabetic 32 gauge x #50 ea 07/18/21 01/08/22 Unknown History (Pentips) risperidone 1 mg tablet 1 mg PO BEDTIME 07/18/21 01/08/22 Unknown History cholecalciferol (vitamin D3) 50 50 mcg PO QAM 10/13/21 01/08/22 Unknown History mcg (2,000 unit) capsule quetiapine 25 mg tablet 25 mg PO BEDTIME 10/13/21 01/08/22 Unknown History Exam Exam Date and Time: February 08, 2022 1053 Height,Weight and Vital Signs: Height 5 ft 6 in Weight 87.362 kg Narrative Narrative: EKG 10/2021 Vent. Rate : 062 BPM ? ? Atrial Rate : 062 BPM ?? P-R Int : 162 ms? QRS Dur : 076 ms ? ? QT Int : 402 ms ? ? ? P-R-T Axes : 037 022 009 degrees ?? QTc Int : 408 ms ? Sinus rhythm with marked sinus arrhythmia Otherwise normal ECG When compared with ECG of 10-MAR-2021 11:47, No significant change was found Assessment and Plan Assessment Anesthesia Assessment: Chart Reviewed Final Anesthetic Review History of Problems with Anesthesia: No Documented by User: Fernando Parikh MD 02/09/22 07:20 [facility] Past Medical History Medical History Anemia BPH (benign prostatic hyperplasia) Diabetes mellitus GERD (gastroesophageal reflux disease) History of adenomatous polyp of colon Hyperlipidemia Hypertension Neuropathy Bulgarian speaking patient Urge incontinence Urgency of micturition Family History Family History Other Lung disease Family history of problems with anesthesia: No Surgical History Surgical History History of circumcision (10/02/16) History of colonoscopy with polypectomy (03/19/14) History of local excision of skin lesion (02/29/16) Hx of transurethral resection of prostate History of Problems with Anesthesia: No Social History Social History Are you a primary career and technology education teacher to a significant other at home: No Do you presently have visiting nurse or other home services: No Alcohol intake: never Patient Tobacco Use Status: Former Tobacco user Quit Date: 34 years ago Tobacco use type: Cigarette Use of substances other than those prescribed or required for medical reasons: No Are you DNR?: No Advance Directives: No Advance Directives Information Provided: Yes Meds Allergies Allergy/AdvReac Type Severity Reaction Status Date / Time No Known Allergies Allergy Verified 01/08/22 14:19 Home Medications Medication Instructions Recorded Confirmed Last Taken Type alcohol swabs pad topical BID 05/09/20 01/08/22 Unknown History aspirin 81 mg tablet,delayed 81 mg PO BEDTIME 05/09/20 01/08/22 Unknown History release atorvastatin 10 mg tablet 10 mg PO BEDTIME 05/09/20 01/08/22 Unknown History blood sugar diagnostic #10 ea 05/09/20 01/08/22 Unknown History lisinopril 40 mg tablet 40 mg PO QAM 05/09/20 01/08/22 Unknown History metformin 500 mg tablet 1,000 mg PO BID 05/09/20 01/08/22 Unknown History omeprazole 20 mg capsule,delayed 20 mg PO QAM 05/09/20 01/08/22 10/23/21 History release pregabalin 50 mg capsule 50 mg PO TID 05/09/20 01/08/22 10/23/21 History duloxetine 60 mg capsule,delayed 60 mg PO DAILY 05/30/20 01/08/22 10/23/21 History release donepezil 10 mg tablet 10 mg PO DAILY 07/18/21 01/08/22 Unknown History glipizide 5 mg tablet 5 mg PO DAILY 07/18/21 01/08/22 Unknown History insulin detemir U-100 100 unit/mL 4 unit subcut DAILY 07/18/21 01/08/22 Unknown History (3 mL) subcutaneous pen (Levemir FlexTouch U-100 Insulin) lancets 33 gauge (TRUEplus Lancets) #100 ea 07/18/21 01/08/22 Unknown History pen needle, diabetic 31 gauge x #50 ea 07/18/21 01/08/22 Unknown History 3/16 (Easy Touch) pen needle, diabetic 32 gauge x #50 ea 07/18/21 01/08/22 Unknown History (Pentips) risperidone 1 mg tablet 1 mg PO BEDTIME 07/18/21 01/08/22 Unknown History cholecalciferol (vitamin D3) 50 50 mcg PO QAM 10/13/21 01/08/22 Unknown History mcg (2,000 unit) capsule quetiapine 25 mg tablet 25 mg PO BEDTIME 10/13/21 01/08/22 Unknown History Exam Airway Mallampati Class: I TM Dist: <=3cm Neck ROM: Full Denture: Upper and Lower Heart: ok Lungs: ok Assessment and Plan Assessment Anesthesia Assessment: Anesthesia Plan Discussed and Chart Reviewed Final Anesthetic Review Family History of Problems with Anesthesia: No History of Problems with Anesthesia: No NPO: Yes ASA Class: III Final Preanesthetic Review: No Changes in Pt Med Stat, Meds/Allgs Chart Reviewed, Consent Obtained/Reviewed and Anes Risks/Benef Reviewed Patient Risk: High Procedure Risk: Low Anesthetic Plan Anesthetic Plan: MAC: and Agree w/ Assess. and Plan Disposition: Standard PACU
[2022-02-09 06:56] VITALS: BP 171/73; PULSE 65; RESP 16; TEMP 36.3; O2SAT 99
[2022-02-09 07:01] VITALS: BMI 32.3
[2022-02-09] MEDS: Lactated Ringers 1,000 ML 100 ML IVCONT (07:27)
[2022-02-09 07:28] LABS: Glucose, Whole Blood 142 mg/dL (60-115)
--- NOTE | 2022-02-09 07:29 | MHC.SHP ---
Pre-Procedural Eval Section A Date of Service: 02/09/22 Section B Chief Complaint: hx of polyps Details of Present Illness: had multiple adenomas in 2019 Relevant Family History (Specify if Yes): No Relevant Social History: None Present Medications: see Short Stay Collaborative assessment Medical History: Significant History (DM, HTN, BPH) History of Previous Operations: No relevant previous surgery Allergies: Allergies Allergy/AdvReac Type Severity Reaction Status Date / Time No Known Allergies Allergy Verified 01/08/22 14:19 Review of Systems Sugical H&P ROS: Negative: Constitution, Cardiovascular, Respiratory, Neurological, Psychiatric, Hem-Onc, Allergic/Immunologic, Gastrointestinal, Genitourinary, Musculoskeletal, Integumentary, Endocrine and Eyes/Ears/Nose/Throat Exam Surgical H&P Exam: Normal: HEENT, Normal: Heart, Normal: Lungs, Normal: Extremities, Normal: Abdomen, Normal: Skin and Normal: Neurological Plan Diagnosis/Plan: Unchanged I have reviewed the history and physical and performed a pertinent physical examination on my patient. No changes have occurred unless specified.
--- NOTE | 2022-02-09 08:03 | P.OP_ITS ---
Operative Note Operative Note Date of Service: 02/09/22 Narrative: Preop dx: hx of tubular adenomas Postop dx: 1. small polyp, about 2 mm, cecum 2. 2 small polyps, each about 2 mmm, hepatic flexure 3. Diverticulosis, proximal transverse colon Procedure: Colonoscopy, with polypectomy using using cold forceps x3 Surgeon: Shailesh Buck MD Patient is a 76-year-old male with history of tubular adenomas, here for a follow-up colonoscopy. He understood the technique of the procedure. He was aware of the risks, benefits, and alternatives Was brought to the operating room. He was placed in left lateral decubitus position under monitored anesthesia care. A full digital rectal exam was done after a surgical time-out. There were no palpable anal lesions. The tip of the Olympus colonoscope was gently introduced through the anal orifice and advanced with insufflation all the cecum. The cecum was intubated. The cecum was identified by visualization of the ileocecal valve as well as the appendiceal orifice. The cecal mucosa was examined carefully and there was note of a small probably about 2 mm to 3 mm in size. This was removed using multiple bites of the cold forceps. We continued to then with the scope with careful examination of the entire colonic mucosa being done with scope withdrawal. There was note of 2 small polyps, about 2-3 mm age in the small transverse colon near the hepatic flexure. This were all removed using multiple bites of cold forceps. We continued to withdraw the scope with careful examination of the rest of the colonic mucosa. There was note of some coating of thin stools the distal colon. There was note of diverticulosis in the hepatic flexure. Other than that, it was unlikely that any large lesion may have been missed. The rectum was reached. There were no lesions seen. The anal canal was unremarkable. The scope was then withdrawn completely with desufflation The patient tolerated procedure well. There were no had complications Depending on the path report, I may recommend another colonoscopy in the next 3- 5 years also because of the suboptimal bowel prep in the more distal colon. Without will also depend on the patient's health by then.
[2022-02-09 08:11] VITALS: BP 120/83; PULSE 75; RESP 16; TEMP 36.1; O2SAT 99
[2022-02-09 08:26] VITALS: BP 153/61; PULSE 63; RESP 16; TEMP 36.2; O2SAT 98
== END 2022-02-09 09:00 | disposition home or self-care (01) ==
PROVIDERS: PCP Family Medicine; Visit Provider Surgery
PROC: 0DJD8ZZ Inspection of Lower Intestinal Tract, Via Natural or Artificial Opening Endoscopic (ICD-10-PCS; CPT 45378; principal; 2022-02-09 07:30)
DX: Z12.11 Encounter for screening for malignant neoplasm of colon (principal); Z86.010 Personal history of colon polyps; D12.0 Benign neoplasm of cecum; D12.3 Benign neoplasm of transverse colon; K57.30 Diverticulosis of large intestine without perforation or abscess without bleeding; K21.9 Gastro-esophageal reflux disease without esophagitis; I10 Essential (primary) hypertension; D64.9 Anemia, unspecified; E78.5 Hyperlipidemia, unspecified; E11.9 Type 2 diabetes mellitus without complications; Z79.4 Long term (current) use of insulin; Z79.82 Long term (current) use of aspirin; Z79.899 Other long term (current) drug therapy; Z87.891 Personal history of nicotine dependence
CPT/HCPCS: 45380; 82947; 88305

== ENCOUNTER 2022-06-20 13:42 | Outpatient (REF) | payer MEDICARE, MEDICAID, SELFPAY ==
--- NOTE | ~2022-06-20 | US_ITS ---
EXAMINATION: US VENOUS ULTRASOUND WITH DOPPLER LOWER EXTREMITY, BILATERAL CLINICAL INFORMATION: Bilateral lower extremity pain. Assess for occult DVT. COMPARISON: Bilateral leg venous ultrasound 05/18/2012 TECHNIQUE: Ultrasound of the deep veins is performed from the hip to the calf with compression sonography and color and pulse Doppler assessment. Spectral analysis with color-flow imaging is performed. FINDINGS: RIGHT: There is normal venous compression and respiratory variation and augmented flow. The visualized common femoral vein, superficial femoral vein, profunda femoral vein, popliteal vein, and the trifurcation region shows no evidence of deep venous thrombosis. No popliteal fossa cyst. LEFT: There is normal venous compression and respiratory variation and augmented flow. The visualized common femoral vein, superficial femoral vein, profunda femoral vein, popliteal vein, and the trifurcation region shows no evidence of deep venous thrombosis. No popliteal fossa cyst. US/US venous duplex LE BI IMPRESSION: No DVT demonstrated in the bilateral lower extremity.
== END 2022-06-20 13:43 | disposition home or self-care (01) ==
LOC: HO.US 13:42
PROVIDERS: PCP Family Medicine; Visit Provider Psychiatry & Neurology Neurology
DX: G62.9 Polyneuropathy, unspecified (principal); M79.605 Pain in left leg; M79.604 Pain in right leg; M79.89 Other specified soft tissue disorders
CPT/HCPCS: 93970